=== PATIENT | male | born 1995 | race Caucasian/White ===

== ENCOUNTER 2018-09-17 14:26 | Emergency (ER) | payer OTHER ==
[2018-09-17 14:47] VITALS: BP 152/53
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
== END 2018-09-17 15:47 | disposition home or self-care (01) ==
LOC: UCCORT 14:26
DX: M25.462 Effusion, left knee (principal); M25.562 Pain in left knee; F17.210 Nicotine dependence, cigarettes, uncomplicated
CPT/HCPCS: 99203; G0463